=== PATIENT | female | born 1990 | race Caucasian/White ===

== ENCOUNTER 2022-08-06 10:17 | Emergency (ER) | payer OTHER ==
[2022-08-06 10:23] VITALS: BP 121/60
--- NOTE | 2022-08-06 10:50 | ED Physician Documentation ---
PD HPI UPPER EXT INJURY - Stated complaint Stated Complaint: R PINKY FINGER INJ - Chief complaint Chief Complaint: Trauma Ext - History obtained from History obtained from: Patient - History of Present Illness Location: Right, Finger (5th) Type of injury: Other (unknown) Timing - onset: Yesterday Timing - duration: Days (2) Timing - details: Abrupt onset, Still present Improved by: Rest, Immobilization Worsened by: Moving, Palpating Associated symptoms: Swelling, Discolored. 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 Review of Systems Constitutional: denies: Fever Respiratory: denies: Cough GI: denies: Vomiting, Diarrhea PD PAST MEDICAL HISTORY - Allergies Allergies/Adverse Reactions: Allergies Allergy/AdvReac Type Severity Reaction Status Date / Time No Known Drug Allergies Allergy Verified 08/06/22 10:23 PD ED PE NORMAL - Vitals Vital signs reviewed: Yes (Normal) - General General: Alert and oriented X 3, No acute distress, Well developed/nourished - HEENT HEENT: Atraumatic, PERRL, EOMI - Respiratory Respiratory: No respiratory distress - Derm Derm: Normal color, Warm and dry, No rash - Extremities Extremities: No deformity, Other (Minimal swelling and point tenderness to the PIP joint of the fifth digit on the right hand. Range of motion is limited by pain and swelling. 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, No motor deficit, No sensory deficit, Normal speech Eye Opening: Spontaneous Motor: Obeys Commands Verbal: Oriented GCS Score: 15 - Psych Psych: Normal mood, Normal affect Results - Vitals Vitals: Vital Signs - 24 hr 08/06/22 10:21 Temperature 36.9 C Heart Rate 73 Respiratory 16 Rate Blood Pressure 121/60 O2 Saturation 100 Oxygen O2 Source Room air - Rads (name of study) fingers Radiology: Prelim report reviewed (Impression: No acute or significant abnormality of the fifth finger.), EMP read indepedently, See rad report PD Medical Decision Making - ED course Complexity details: considered differential, d/w patient ED course: 32-year-old female with pain to the right PIP joint of the fifth finger without specific injury noted has no evidence of fracture on plain film. She has her fingers rocio taped and we are expecting recovery. Departure - Departure Disposition: 01 Home, Self Care Clinical Impression: Sprain of proximal interphalangeal (PIP) joint of finger Condition: Stable Instructions: ED Sprain Finger Follow-Up: Your, doctor [Other] Comments: Kayla, today it does not look like there is any evidence of a fracture on plain film the recommendation is to rocio tape her fingers and expect resolution of her symptoms within the week.
--- NOTE | 2022-08-06 11:06 | XRAY Report ---
PROCEDURE: Finger(s) RT INDICATIONS: 5th PIP swelling pain TECHNIQUE: AP hand, 2 views of the fifth finger(s) acquired. COMPARISON: None FINDINGS: Bones: No fractures or dislocations. No suspicious bony lesions. Soft tissues: No suspicious soft tissue calcifications. No radiopaque foreign bodies. IMPRESSION: No acute or significant abnormality of the fifth finger. Reviewed by: Shar Gamez on 08/06/2022 11:04 AM [facility] [[email or web address]] Approved by: Shar Gamez on 08/06/2022 11:04 AM [facility] [[email or web address]] Station ID: [id number]
== END 2022-08-06 11:24 | disposition home or self-care (01) ==
LOC: ED 10:17
DX: S63.637A Sprain of interphalangeal joint of left little finger, initial encounter (principal); X58.XXXA Exposure to other specified factors, initial encounter; Y93.9 Activity, unspecified
CPT/HCPCS: 99283

== ENCOUNTER 2022-08-07 06:58 | Outpatient (CLI) | payer OTHER ==
--- NOTE | 2022-08-07 08:12 | MRI Report ---
PROCEDURE: CERVICAL SPINE WO INDICATIONS: LOWER NECK PAIN TECHNIQUE: Noncontrast sagittal T1 spin echo and T2 fast spin echo, sagittal STIR, foraminal oblique sagittal T2 fast spin echo, and axial gradient echo or T2 fast spin echo through the cervical spine. COMPARISON: None. FINDINGS: Image quality: Excellent. Alignment and Curvature: There is normal bony alignment. Bone Marrow: Marrow demonstrates normal overall signal. Spinal Cord: Visualized spinal cord has normal size and signal. No cerebellar tonsillar herniation. Paraspinous Soft Tissues: No paravertebral masses. Prevertebral soft tissues are normal in thicknes s. C2-C3: Normal in appearance. C3-C4: Minimal disc bulge. No canal stenosis or foraminal stenosis. C4-C5: Normal in appearance. C5-C6: Normal in appearance. C6-C7: Normal in appearance. C7-T1: Normal in appearance. IMPRESSION: Minimal disc bulge at C3-C4. Otherwise unremarkable cervical spine MRI. No canal stenosis or foramina l stenosis or significant spondylitic change. Reviewed by: García Mason MD on 08/07/2022 8:11 AM PST Approved by: García Mason MD on 08/07/2022 8:11 AM PST Station ID: [id number]
== END 2022-08-07 06:59 | disposition home or self-care (01) ==
LOC: DI 06:58
PROVIDERS: ATTEND Nurse Practitioner Family
DX: M54.2 Cervicalgia (principal); R20.2 Paresthesia of skin

== ENCOUNTER 2023-04-26 08:30 | Outpatient (CLI) | payer OTHER ==
--- NOTE | 2023-04-26 13:10 | XRAY Report ---
PROCEDURE: Elbow 2 View RT INDICATIONS: NUMBNESS AND TINGLING RIGHT ARM TECHNIQUE: 2 views of the elbow were acquired. COMPARISON: None. FINDINGS: Bones: No fractures or dislocations. No suspicious bony lesions. Soft tissues: No effusion. No suspicious soft tissue calcifications or masses. IMPRESSION: No acute bony abnormality. Reviewed by: Reggie Almazan on 04/26/2023 1:09 PM [facility] Approved by: Reggie Almazan on 04/26/2023 1:09 PM [facility] Station ID: [id number]
--- NOTE | 2023-04-26 13:18 | XRAY Report ---
PROCEDURE: Wrist 3 View RT INDICATIONS: NUMBNESS AND TINGLING,RIGHT ARM TECHNIQUE: 3 views of the wrist were acquired. COMPARISON: None. FINDINGS: Bones: No fractures or dislocations. No suspicious bony lesions. Soft tissues: No suspicious soft tissue calcifications or masses. IMPRESSION: No acute bony abnormality. Reviewed by: Reggie Almazan on 04/26/2023 1:17 PM [facility] Approved by: Reggie Almazan on 04/26/2023 1:17 PM [facility] Station ID: [id number]
--- NOTE | 2023-04-26 13:34 | XRAY Report ---
PROCEDURE: Shoulder 3 View RT INDICATIONS: NUMBNESS AND TINGLING, RIGHT ARM TECHNIQUE: 3 views of the shoulder were acquired. COMPARISON: None. FINDINGS: Bones: No fractures or dislocations. No suspicious bony lesions. Visualized ribs appear intact. Soft tissues: No suspicious soft tissue calcifications. The visualized lungs are within normal limi ts. IMPRESSION: No acute bony abnormality. No significant degenerative change. Reviewed by: Reggie Almazan on 04/26/2023 1:33 PM PST Approved by: Reggie Almazan on 04/26/2023 1:33 PM [facility] Station ID: [id number]
--- NOTE | 2023-04-26 13:36 | XRAY Report ---
PROCEDURE: Cervical Spine 2 View INDICATIONS: NUMBNESS AND TINGLING,RIGHT ARM TECHNIQUE: 3 view(s) of the cervical spine were acquired. COMPARISON: None. FINDINGS: Bones: No fractures or dislocations to the C7 level. The lateral masses of C1 appear intact on the odontoid view. No suspicious bony lesions. Soft tissues: No prevertebral soft tissue swelling. IMPRESSION: No acute bony abnormality or significant degenerative change. Reviewed by: Reggie Almazan on 04/26/2023 1:35 PM [facility] Approved by: Reggie Almazan on 04/26/2023 1:35 PM [facility] Station ID: [id number]
== END 2023-04-26 08:31 | disposition home or self-care (01) ==
LOC: DI 08:30
PROVIDERS: ATTEND Physician Assistant Medical
DX: R20.2 Paresthesia of skin (principal)

== ENCOUNTER 2023-05-18 20:27 | Emergency (ER) | payer OTHER ==
[2023-05-18] MEDS ORDERED: ONDANSETRON ODT 4 MG TABLET TL STA (21:33)
[2023-05-18] MEDS ORDERED: HYDROmorphone 1 MG/ML CARPUJECT IM STA ×2 (21:33→22:29)
--- NOTE | 2023-05-18 21:34 | ED Physician Documentation ---
PD HPI LOWER EXT INJURY - Stated complaint Stated Complaint: BACK PAIN - Chief complaint Chief Complaint: Ext Problem - History obtained from History obtained from: Patient - History of Present Illness PD HPI LOW EXT INJURY LOCATION: Right - Additional information Additional information: She has had hip and back pain for the last 2 weeks. In fact she had to start driving with her left foot because the hip was hurting and she was feeling like she was losing function in the leg. Tonight she was getting up from a seated position off the floor and suddenly felt a pop in the hip and has much more severe pain in the hip and the pelvic girdle. She took baclofen and Motrin at home without much relief. She is nauseous as well. No possibility of , she has had a hysterectomy. PD PAST MEDICAL HISTORY - Past Medical History Past Medical History: No - Past Surgical History Past Surgical History: No - Present Medications Home Medications: Ambulatory Orders Medication Instructions Recorded Confirmed Cyclobenzaprine [Flexeril] 10 mg PO TID PRN 6 Days #20 tablet 05/19/23 Ibuprofen [Motrin] 600 mg PO Q6H PRN #30 tab 05/19/23 Lidocaine [Lidoderm] 1 each TP DAILY #10 patch 05/19/23 Oxycodone HCl/Acetaminophen 1 - 2 each PO Q6H PRN #14 tablet 05/19/23 [Percocet 5-325 mg Tablet] predniSONE [Deltasone] 20 mg PO [id number] #21 tab 05/19/23 - Allergies Allergies/Adverse Reactions: Allergies Allergy/AdvReac Type Severity Reaction Status Date / Time No Known Drug Allergies Allergy Verified 05/18/23 20:56 - Social History Does the pt smoke?: No Smoking Status: Never smoker Does the pt drink ETOH?: No Does the pt have substance abuse?: No - Immunizations Immunizations are current?: Yes - POLST Patient has POLST: No PD ED PE NORMAL - Vitals Vital signs reviewed: Yes - General General: Alert and oriented X 3, Other (She appears uncomfortable) - Abdomen Abdomen: Soft, Non tender - Back Back: No CVA TTP, Other (Tender in the low lumbar spine and right sciatic notch, not the left sciatic notch) - Derm Derm: Normal color, Warm and dry - Extremities Extremities: Other (Tender over the lateral hip and a lot of pain with internal/external rotation of the right hip. She has diminished sensation over the right medial calf compared to the left but lower extremity reflexes and strength are maintained limited by pain.) - Neuro Neuro: Alert and oriented X 3, Normal speech Results - Vitals Vitals: Vital Signs - 24 hr 05/18/23 05/18/23 05/19/23 20:53 23:48 00:58 Temperature 36.6 C 37 C Heart Rate 97 79 89 Respiratory 18 20 18 Rate Blood Pressure 144/77 H 128/74 106/69 O2 Saturation 98 100 98 Oxygen O2 Source Room air - Rads (name of study) XR L Spine and R Hip- Neg Relevant Findings:: Final report received, EMP independent interpretation of test PD Medical Decision Making - ED course ED course: Some numbness and weakness of the right leg for a couple of weeks and then a much more severe pain with a pop in the right hip while getting up off the floor tonight. Differential would include lumbar disc herniation with radiculopathy versus torn labrum. Less likely would be sun'aq hip dislocation. Pain contro lled initially with 1 mg of Dilaudid IM and this was repeated with a second dose at 2 mg with Toradol pending x-rays of the lumbar spine and hip. Departure - Departure Disposition: 01 Home, Self Care Clinical Impression: Lumbar radiculopathy, acute Condition: Good Record reviewed to determine appropriate education?: Yes Instructions: ED Sciatica Prescriptions: predniSONE [Deltasone] 20 mg PO [id number] #21 tab Cyclobenzaprine [Flexeril] 10 mg PO TID PRN 6 Days #20 tablet PRN Reason: Spasms Lidocaine [Lidoderm] 1 each TP DAILY #10 patch Ibuprofen [Motrin] 600 mg PO Q6H PRN #30 tab PRN Reason: Pain Oxycodone HCl/Acetaminophen [Percocet 5-325 mg Tablet] 1 - 2 each PO Q6H PRN #14 tablet PRN Reason: pain Comments: DISCUSSED, MORE CONSISTENT (TO ME) WITH LUMBAR RADICULOPATHY THAN HIP PATHOLOGY, BUT BOTH STILL POSSIBLE. XRAYS (HIP AND L-SPINE) NORMAL/NEG REASONABLE TO FOLLOWUPW ITH YOUR PCP ASP FOR EVAL FOR BOTH, +/- MRI OF EITHER/BOTH I SENT PRESRIPTIONS TO [facility] IN [place] Forms: PCP List Discharge Date/Time: 05/19/23 01:19
[2023-05-18] MEDS ORDERED: KETOROLAC 60 MG/2 ML VIAL IM STA (22:29)
--- NOTE | 2023-05-18 23:45 | XRAY Report ---
PROCEDURE: Lumbar Spine 2 View INDICATIONS: back pain TECHNIQUE: 2 views of the lumbar spine were acquired. COMPARISON: None. FINDINGS: Bones: 5 [id number] vertebrae are present. There is normal bony alignment. No vertebral body compression fractures. No suspicious bony lesions. Soft tissues: Overlying bowel gas pattern is normal. No suspicious soft tissue calcifications. IMPRESSION: No acute osseous abnormality. Reviewed by: Narciso Anderson MD on 05/18/2023 11:44 PM PST Approved by: Narciso Anderson MD on 05/18/2023 11:44 PM PST Station ID: [id number]
--- NOTE | 2023-05-18 23:45 | XRAY Report ---
PROCEDURE: Hip w/Pelvis 2-3V RT INDICATIONS: hip pain TECHNIQUE: AP pelvis with lateral view(s) of the right hip(s). COMPARISON: None. FINDINGS: Bones: No fractures or dislocations. No suspicious bony lesions. Soft tissues: No suspicious soft tissue calcifications or masses. IMPRESSION: No acute bony abnormality. Reviewed by: Narciso Anderson MD on 05/18/2023 11:43 PM PST Approved by: Narciso Anderson MD on 05/18/2023 11:43 PM PST Station ID: [id number]
[2023-05-19] MEDS ORDERED: CYCLOBENZAPRINE 10 MG Prepack 2 PO PRN (00:37)
[2023-05-19] MEDS ORDERED: oxyCODONE/ACET 5/325 Prepack 4 PO STA (00:37)
[2023-05-19] MEDS ORDERED: predniSONE 20 MG TABLET PO STA (00:41)
[2023-05-19 01:07] VITALS: BP 106/69; O2SAT 98
[2023-05-19] MEDS ORDERED: ONDANSETRON ODT 4 MG TABLET TL STA (01:07)
== END 2023-05-19 01:19 | disposition home or self-care (01) ==
LOC: ED 20:27
DX: M54.16 Radiculopathy, lumbar region (principal)
CPT/HCPCS: 96372; 99283; 99284

== ENCOUNTER 2023-05-19 10:08 | Emergency (ER) | payer OTHER ==
[2023-05-19 10:24] VITALS: O2SAT 100
--- NOTE | 2023-05-19 12:15 | ED Physician Documentation ---
History of Present Illness - Stated complaint Stated Complaint: RT HIP PX - Chief complaint Chief Complaint: Trauma Ext - History obtained from History obtained from: Patient - Additonal information Additional information: The patient comes to the emergency department chief complaint of right hip pain that got much worse after getting up off the floor and feeling a pop yesterday. The patient states for the last couple of weeks she has been having some pain in her left hip but has mostly been able to go about her normal activities. 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 She states she did not have any specific injury prior to the getting up incident yesterday. She states that after she felt a pop yesterday while getting up, she had excruciating, knifelike pain in her right hip and has been unable to bear weight since. The patient states she has had some numbness going down her leg and does not have a history of sciatica previously. She states the pain is really in her lateral right hip and not so much in her buttock. She has a history of some back issues and was having a little bit of back pain when she presented to the emergency department last night, but states the medication is that she has been taking since have more or less taken away the back pain and the pain is that she is having is really focused to the left hip. The patient was prescribed Percocet and Flexeril last night, but she states that those medications made her vomit, so she really has just taken ibuprofen and Zofran since. She is here because she has been trying to get an appointment with her primary to discuss having MRI done, but has been told that she cannot be seen in the clinic for 4 weeks. The insurance company told her to come back here for reevaluation and there was also a conversation last night with her emergency physician that she might be able to be "fit in" if the MRI scheduled allowed, with the understanding that this is not an emergent MRI and will not be done if another patient has to be bumped off the schedule in order to get her MRI. The patient denies any other complaints or new complaints at this time. She did not feel like she had any other injuries. PD PAST MEDICAL HISTORY - Past Medical History Past Medical History: No - Past Surgical History Past Surgical History: No - Present Medications Home Medications: Ambulatory Orders Medication Instructions Recorded Confirmed Cyclobenzaprine [Flexeril] 10 mg PO TID PRN 6 Days #20 tablet 05/19/23 05/19/23 Ibuprofen [Motrin] 600 mg PO Q6H PRN #30 tab 05/19/23 05/19/23 Lidocaine [Lidoderm] 1 each TP DAILY #10 patch 05/19/23 05/19/23 Oxycodone HCl/Acetaminophen 1 - 2 each PO Q6H PRN #14 tablet 05/19/23 05/19/23 [Percocet 5-325 mg Tablet] predniSONE [Deltasone] 20 mg PO [id number] #21 tab 05/19/23 05/19/23 - Allergies Allergies/Adverse Reactions: Allergies Allergy/AdvReac Type Severity Reaction Status Date / Time No Known Drug Allergies Allergy Verified 05/19/23 10:21 - Social History Does the pt smoke?: No Smoking Status: Never smoker Does the pt drink ETOH?: No Does the pt have substance abuse?: No - Immunizations Immunizations are current?: Yes - POLST Patient has POLST: No PD ED PE NORMAL - Vitals Vital signs reviewed: Yes - General General: Alert and oriented X 3, No acute distress, Well developed/nourished - HEENT HEENT: Atraumatic, PERRL, EOMI, Moist mucous membranes - Neck Neck: Supple, no meningeal sign - Respiratory Respiratory: No respiratory distress - Abdomen Abdomen: Soft, Non tender, Non distended - Derm Derm: Normal color, Warm and dry - Extremities Extremities: No deformity (No shortening or rotation.), Other (Tenderness to palpation over lateral right hip as well as extending to the lateral inguinal ligament and down the proximal thigh anteriorly. No deformity. Significant limitation to Passive and active ROM, secondary to pain.) - Neuro Neuro: Alert and oriented X 3, No motor deficit, No sensory deficit - Psych Psych: Normal mood, Normal affect Results - Vitals Vitals: Oxygen O2 Source Room air - Rads (name of study) MR Raji hip Relevant Findings:: Final report received, See rad report (Tears of gluteus minimus and medius tendons. Tendinosis hamstrings tendon.) PD Medical Decision Making - ED course Complexity details: reviewed old records, reviewed results, re-evaluated patient, considered differential, d/w patient, d/w family ED course: I discussed with the patient that as she already knows, her situation does not qualify for emergent MRI. The patient is completely understanding of this. However, I am willing to talk to the correctional maintenance technician and see what his schedule is today and see if we can possibly fit the patient in since her symptoms have been quite debilitating. The patient has declined any symptomatic management at this time as she just took ibuprofen and Zofran at home. I spoke with the correctional maintenance technician and it turns out he actually is open all morning, so the patient has been able to get the MRI of her right hip. MR showed partial tears of gluteus minimus and medius tendons. I have discussed this with the pt and her . I have given the pt orthopedic follow-up and activity limitation instructions. Departure - Departure Disposition: 01 Home, Self Care Clinical Impression: Tear of right gluteus minimus tendon Qualifiers: Encounter type: subsequent encounter Qualified Code(s): S76.011D - Strain of muscle, fascia and tendon of right hip, subsequent encounter Tear of right gluteus medius tendon Qualifiers: Encounter type: subsequent encounter Qualified Code(s): S76.011D - Strain of muscle, fascia and tendon of right hip, subsequent encounter Condition: Stable Instructions: Stretch Hamstring W Towel, Stretch Seated Hamstring Follow-Up: Herrera Pal MD [Provider Admit Priv/Credential] - Comments: Your MRI shows tears of the distal tendons of both the right gluteus medius and the right gluteus minimus. Both tears are partial-thickness and extend to the musculotendinous junction. You do also have some chronic tendinopathy of the right hamstring tendons, most likely from overuse. No other abnormalities were noted. At this point in time, you will most likely need to do range of motion exercises and stretches and give the tears time to heal. Often, these tears take a number of weeks to completely heal, although you may be able to get back to work part way through the healing process. The contact information for the orthopedic clinic has been provided that you can follow-up and get a sense of what your limitations will be and for approximately how long. For now, you may continue to take the medications that you have, as needed and as they are helpful. Be sure you are doing some passive range of motion every day with help from somebody else. Stretching, as much as you are able to do, and massage can also be helpful. You may use ice and heat as well. Forms: PCP List, Activity restrictions Discharge Date/Time: 05/19/23 13:05
--- NOTE | 2023-05-19 12:16 | MRI Report ---
PROCEDURE: HIP WO - RT INDICATIONS: severe R hip pain after injury TECHNIQUE: Noncontrast coronal T1 spin echo and STIR through the bony pelvis. Coronal and axial T2 fast spin ec ho with fat saturation, sagittal T1 spin echo, and oblique axial T2 fast spin echo with fat saturatio n through the hip. COMPARISON: Right hip radiographs from 05/18/2023. FINDINGS: Image quality: Excellent. Bones and joints: Bone marrow of the pelvic ring and proximal femurs show normal signal throughout. No intraosseous lesions or fractures. No avascular necrosis of the femoral heads. The visualized l ower lumbar spine appears normally aligned. Tendons: Low to moderate grade partial-thickness tear involving distal right gluteus medius tendon at its insertion on greater trochanter is seen extending to musculotendinous junction. Low-grade partia l-thickness tear involving distal right gluteus minimus tendon is also seen at its insertion on great er trochanter. The iliopsoas tendon appears intact, without adjacent bursal fluid collections. The o rigin of the hamstring tendon is mildly thickened is suggestive of low-grade tendinosis. Labrum and cartilage: There is slight fraying of superior anterior right hip labrum at 12 to 1:00 pos ition concerning for subtle superior anterior labral tear. Cartilage surface of the femoral head appe ars of normal thickness. The alpha angle of the femur is within normal limits at less than 55 degree s. Soft tissues: Visualized muscles demonstrate normal bulk and internal signal. The proximal sciatic neurovascular bundle appears normal adjacent to the hamstring tendons. No free pelvic fluid. Bladde r wall thickness is normal. Genitourinary structures and bowel loops appear normal where visualized. IMPRESSION: 1. No marrow edema. No pelvic or hip fracture. No evidence of avascular necrosis. 2. Low to moderate grade partial-thickness tear involving distal right gluteus medius tendon extendin g to musculotendinous junction. Low-grade partial-thickness involving right distal gluteus minimus te ndon. Tendinosis involving origins of hamstring tendons at the ischial tuberosity. No other muscle or tendon signal abnormalities. 3. Finding finding may represent very subtle superior anterior right hip labral tear in the absence o f intra-articular contrast. Reviewed by: Donald Noel MD on 05/19/2023 12:15 PM PST Approved by: Donald Noel MD on 05/19/2023 12:15 PM [facility] Station ID: [id number]
[2023-05-19 12:48] VITALS: BP 113/65
== END 2023-05-19 13:05 | disposition home or self-care (01) ==
LOC: ED 10:08
DX: S76.011A Strain of muscle, fascia and tendon of right hip, initial encounter (principal); X58.XXXA Exposure to other specified factors, initial encounter
CPT/HCPCS: 72100; 73502; 73721; 96372; 99283; 99284; J1170; J7512; Q0162

== ENCOUNTER 2023-05-28 09:03 | Outpatient (CLI) | payer OTHER | END 2023-05-28 09:04 | disposition home or self-care (01) | LOC: LAB 09:03 | PROVIDERS: ATTEND Nurse Practitioner | DX: M79.661 Pain in right lower leg (principal) | CPT/HCPCS: 36415; 85379 ==

== ENCOUNTER 2023-05-28 12:48 | Outpatient (CLI) | payer OTHER ==
--- NOTE | 2023-05-28 15:50 | Ultrasound Report ---
PROCEDURE: Duplex Ext Veins Right INDICATIONS: HX OF DVT TECHNIQUE: Real-time imaging, as well as color and pulse Doppler interrogation, were performed of the lower extr emity deep veins from the inguinal ligament to the popliteal fossa. Attempted visualization of the ca lf veins was performed. COMPARISON: None. FINDINGS: The deep veins are normally compressible, and free of intraluminal thrombus. Color and pu lse Doppler demonstrate normal phasic intraluminal flow. There is normal augmentation response to di stal compression maneuver. IMPRESSION: No deep vein thrombosis of the right lower extremity. Reviewed by: Jackie Shane MD on 05/28/2023 3:49 PM PST Approved by: Jackie Shane MD on 05/28/2023 3:49 PM PST Station ID: [id number]
== END 2023-05-28 12:49 | disposition home or self-care (01) ==
LOC: DI 12:48
PROVIDERS: ATTEND Nurse Practitioner
DX: Z86.72 Personal history of thrombophlebitis (principal)

== ENCOUNTER 2023-06-16 13:36 | Outpatient (CLI) | payer OTHER ==
[2023-06-16 14:01] LABS: BILIRUBIN,URINE NEGATIVE (NEGATIVE); GLUCOSE, URINE (UA) NEGATIVE (NEGATIVE); KETONES,URINE (UA) NEGATIVE (NEGATIVE); LEUKOCYTE ESTERASE, URINE NEGATIVE (NEGATIVE); NITRITE,URINE POSITIVE (NEGATIVE); OCCULT BLOOD,URINE NEGATIVE (NEGATIVE); PH,URINE 6.5 PH (5.0-7.5); PROTEIN,URINE NEGATIVE (NEGATIVE); UROBILINOGEN,URINE 0.2 (NORMAL) E.U./dL (NORMAL)
[2023-06-16 14:12] LABS: CLARITY,URINE CLEAR (CLEAR)
[2023-06-16 14:13] LABS: BACTERIA,URINE Few /HPF (None Seen); RBC,URINE None Seen /HPF (0-5); SQUAMOUS EPITHELIAL CELL,UR MOD Squamous (<= Few); WBC,URINE 0-3 /HPF (0-5)
== END 2023-06-16 13:37 | disposition home or self-care (01) ==
LOC: LAB 13:36
PROVIDERS: ATTEND Nurse Practitioner
DX: N20.0 Calculus of kidney (principal)
CPT/HCPCS: 81001; 87086

== ENCOUNTER 2023-06-28 08:00 | Outpatient (CLI) | payer OTHER ==
--- NOTE | 2023-06-28 16:33 | XRAY Report ---
PROCEDURE: Pelvis 1 View INDICATIONS: RIGHT HIP PAIN TECHNIQUE: 1 view(s) of the pelvis acquired. COMPARISON: None. FINDINGS: Bones: No acute fractures or dislocations. Tiny corticated fragments adjacent to lateral aspect of b ilateral acetabulum are seen and may represent remote avulsion injury. No suspicious bony lesions. Soft tissues: Visualized bowel gas pattern is normal. No suspicious soft tissue calcifications. IMPRESSION: No acute bony abnormality. Possible remote avulsion injury involving bilateral acetabular roof. No evidence of avascular necrosi s of femoral head. Reviewed by: Donald Jamil MD on 06/28/2023 4:32 PM PST Approved by: Donald Jamil MD on 06/28/2023 4:32 PM PST Station ID: [id number]
== END 2023-06-28 23:59 | disposition home or self-care (01) ==
LOC: DI.WOS 08:00
PROVIDERS: ATTEND Physician Assistant Surgical
DX: M25.551 Pain in right hip (principal)

== ENCOUNTER 2023-07-05 10:03 | Outpatient (CLI) | payer OTHER ==
[2023-07-05 10:25] LABS: BILIRUBIN,URINE NEGATIVE (NEGATIVE); GLUCOSE, URINE (UA) NEGATIVE (NEGATIVE); KETONES,URINE (UA) NEGATIVE (NEGATIVE); LEUKOCYTE ESTERASE, URINE SMALL (NEGATIVE); NITRITE,URINE NEGATIVE (NEGATIVE); OCCULT BLOOD,URINE MODERATE (NEGATIVE); PROTEIN,URINE NEGATIVE (NEGATIVE); UROBILINOGEN,URINE 0.2 (NORMAL) E.U./dL (NORMAL)
[2023-07-05 10:34] LABS: CLARITY,URINE HAZY (CLEAR); SQUAMOUS EPITHELIAL CELL,UR MOD Squamous (<= Few)
[2023-07-05 10:35] LABS: BACTERIA,URINE Rare /HPF (None Seen)
== END 2023-07-05 10:04 | disposition home or self-care (01) ==
LOC: LAB 10:03
PROVIDERS: ATTEND Nurse Practitioner
DX: Z87.440 Personal history of urinary (tract) infections (principal)
CPT/HCPCS: 81001; 87086

== ENCOUNTER 2023-07-06 12:12 | Outpatient (CLI) | payer OTHER ==
[2023-07-06 12:26] LABS: BASOPHILS # (AUTO) 0.1 10^3/uL (0.0-0.1); BASOPHILS % (AUTO) 1.3 %; EOSINOPHILS # (AUTO) 0.1 10^3/uL (0.0-0.7); EOSINOPHILS % (AUTO) 2.2 %; HCT - HEMATOCRIT 42.2 % (37.0-47.0); HGB - HEMOGLOBIN 13.8 g/dL (12.0-16.0); LYMPHOCYTES # (AUTO) 1.6 10^3/uL (1.5-3.5); LYMPHOCYTES % (AUTO) 28.4 %; MEAN CORPUSCULAR HEMOGLOBIN 29.7 pg (27.0-31.0); MEAN CORPUSCULAR HGB CONC 32.7 g/dL (32.0-36.0); MEAN CORPUSCULAR VOLUME 90.9 fL (81.0-99.0); MEAN PLATELET VOLUME 10.2 fL (7.9-10.8); MONOCYTES # (AUTO) 0.4 10^3/uL (0.0-1.0); MONOCYTES % (AUTO) 7.6 %; NEUTROPHILS # (AUTO) 3.4 10^3/uL (1.5-6.6); NEUTROPHILS % (AUTO) 60.3 %; PLT - PLATELET COUNT 245 10^3/uL (130-450); RED BLOOD COUNT 4.64 10^6/uL (4.20-5.40); WHITE BLOOD COUNT 5.6 x10^3/uL (4.8-10.8)
== END 2023-07-06 12:13 | disposition home or self-care (01) ==
LOC: LAB 12:12
PROVIDERS: ATTEND Nurse Practitioner
DX: N20.0 Calculus of kidney (principal); Z87.440 Personal history of urinary (tract) infections
CPT/HCPCS: 36415; 85025

== ENCOUNTER 2023-08-30 09:14 | Outpatient (CLI) | payer OTHER ==
[2023-08-30 09:28] LABS: BASOPHILS # (AUTO) 0.1 10^3/uL (0.0-0.1); BASOPHILS % (AUTO) 1.4 %; EOSINOPHILS # (AUTO) 0.1 10^3/uL (0.0-0.7); HCT - HEMATOCRIT 42.7 % (37.0-47.0); HGB - HEMOGLOBIN 13.7 g/dL (12.0-16.0); LYMPHOCYTES # (AUTO) 1.5 10^3/uL (1.5-3.5); LYMPHOCYTES % (AUTO) 25.2 %; MEAN CORPUSCULAR HEMOGLOBIN 29.4 pg (27.0-31.0); MEAN CORPUSCULAR HGB CONC 32.1 g/dL (32.0-36.0); MEAN CORPUSCULAR VOLUME 91.6 fL (81.0-99.0); MEAN PLATELET VOLUME 9.8 fL (7.9-10.8); MONOCYTES # (AUTO) 0.3 10^3/uL (0.0-1.0); MONOCYTES % (AUTO) 4.9 %; NEUTROPHILS # (AUTO) 3.9 10^3/uL (1.5-6.6); NEUTROPHILS % (AUTO) 66.2 %; PLT - PLATELET COUNT 292 10^3/uL (130-450); RED BLOOD COUNT 4.66 10^6/uL (4.20-5.40); WHITE BLOOD COUNT 5.9 x10^3/uL (4.8-10.8)
[2023-08-30 09:43] LABS: ALBUMIN 4.6 g/dL (3.2-5.5); ALBUMIN/GLOBULIN RATIO 1.5 (1.0-2.2); BILIRUBIN,TOTAL 1.3 mg/dL (0.2-1.0); CALCIUM 9.9 mg/dL (8.5-10.3); CREATININE 0.8 mg/dL (0.6-1.3); POTASSIUM 4.1 mmol/L (3.5-4.5); TOTAL PROTEIN 7.7 g/dL (6.4-8.9)
== END 2023-08-30 09:15 | disposition home or self-care (01) ==
LOC: LAB 09:14
PROVIDERS: ATTEND Physician Assistant
DX: K59.00 Constipation, unspecified (principal); R14.0 Abdominal distension (gaseous); R19.7 Diarrhea, unspecified; R63.0 Anorexia; R14.3 Flatulence; R68.81 Early satiety; R11.0 Nausea
CPT/HCPCS: 36415; 80053; 81599; 83690; 85025

== ENCOUNTER 2023-12-03 08:16 | Outpatient (CLI) | payer OTHER ==
[2023-12-03 08:50] LABS: ALBUMIN 4.7 g/dL (3.2-5.5); ALBUMIN/GLOBULIN RATIO 1.7 (1.0-2.2); ALKALINE PHOSPHATASE 69 IU/L (42-121); ALT ALANINE AMINOTRANSFERASE 18 IU/L (10-60); AST ASPARTATE AMINOTRANSFERASE 18 IU/L (10-42); BILIRUBIN,TOTAL 1.2 mg/dL (0.2-1.0); BUN - BLOOD UREA NITROGEN 16 mg/dL (6-20); CALCIUM 9.7 mg/dL (8.5-10.3); CARBON DIOXIDE - CO2 27 mmol/L (21-32); CHLORIDE 103 mmol/L (101-111); CHOL/HDL RATIO 2.4 (<4.4); CHOLESTEROL 164 mg/dL; CREATININE 0.9 mg/dL (0.6-1.3); GFR - MDRD 73 (>89); GLUCOSE 83 mg/dL (74-104); HDL CHOLESTEROL 69 mg/dL; LDL CHOLESTEROL,CALCULATED 85 mg/dL; LDL/HDL RATIO 1.2 (<4.4); SODIUM 135 mmol/L (135-145); TOTAL PROTEIN 7.5 g/dL (6.4-8.9); TRIGLYCERIDES 52 mg/dL (48-352); VLDL CHOLESTEROL 10 mg/dL
== END 2023-12-03 08:17 | disposition home or self-care (01) ==
LOC: LAB 08:16
PROVIDERS: ATTEND Internal Medicine
DX: L70.8 Other acne (principal)
CPT/HCPCS: 36415; 80053; 80061; 83721

== ENCOUNTER 2024-02-01 16:01 | Outpatient (CLI) | payer OTHER ==
--- NOTE | 2024-02-02 12:14 | MRI Report ---
Shoulder LT WO CLINICAL HISTORY: 33 years of age, Female, LEFT SHOULDER PAIN. Comparison: No priors available Technique: Multiplanar, multisequence MRI of the left shoulder was performed without intravenous con trast. IV Contrast: Not Administered. Findings: Osseous acromial outlet: The acromioclavicular joint is unremarkable. Type II acromion. No os acromia le. No subacromial/subdeltoid bursitis. Rotator cuff muscles and tendons: The supraspinatus, infraspinatus, subscapularis, and teres minor ar e intact without evidence of tendinosis or tear. Muscles are intact without evidence of atrophy or edema. Labral and capsular structures: Tear of the anterior superior labrum, extending anteriorly to the ant erior inferior labrum. There is a cluster of paralabral cyst about the anterior inferior labrum, skyla uring 2.0 cm overall. Biceps tendon and anchor: The extra-articular biceps tendon is unremarkable. Mild tendinosis of the i ntra-articular biceps tendon. Osseous and cartilaginous structures: Bone marrow signal is within normal limits. No fracture or disl ocation. No focal chondral defects. Miscellaneous: No significant glenohumeral effusion. No intra-articular bodies. The remaining muscl es are normal in bulk without evidence of atrophy or edema. Multiple left axillary lymph nodes, more than expected in number, incompletely evaluated. IMPRESSION: 1.Labral tear with 2.0 cm paralabral cyst about the anterior inferior labrum. 2.Multiple left axillary lymph nodes, more than expected in number, incompletely evaluated. Reviewed by: Mayelin Ku MD on 02/02/2024 12:13 PM PDT Approved by: Mayelin Ku MD on 02/02/2024 12:13 PM PDT Station ID: [id number]
== END 2024-02-01 16:02 | disposition home or self-care (01) ==
LOC: DI 16:01
PROVIDERS: ATTEND Nurse Practitioner Family
DX: S43.492A Other sprain of left shoulder joint, initial encounter (principal)

== ENCOUNTER 2024-02-10 08:47 | Outpatient (CLI) | payer OTHER ==
--- NOTE | 2024-02-10 17:21 | Ultrasound Report ---
PROCEDURE: Abdomen Complete INDICATIONS: BLOATING, DIARRHEA TECHNIQUE: Real-time scanning was performed of the abdominal and retroperitoneal organs, with image documentatio n. COMPARISON: None. FINDINGS: Liver: Liver is normal in size and homogeneous in echotexture. Main portal vein is patent with hepa topedal flow. Gallbladder: No gallstones, sludge, wall thickening or pericholecystic edema. Biliary ducts: Intrahepatic bile ducts are non-dilated. Extrahepatic bile duct caliber measures 3.9 mm. Normal is 6-7 mm or less in diameter, or 10 mm or less post-cholecystectomy. Pancreas: Visualized portions of the pancreas are sonographically normal. Spleen: Spleen is normal in size and homogeneous in echotexture. Kidneys: Kidneys are normal in size width bilateral echogenic.. Right kidney measures 12.9 cm long; left kidney measures 11.6 cm long. No hydronephrosis or nephrolithiasis. No solid masses. No compl ex renal cystic lesions which require follow-up. Aorta: Visualized aorta is normal in caliber at less than 3 cm. Iliacs: Proximal common iliac arteries are normal in caliber at less than 2.5 cm. IVC: Intrahepatic inferior vena cava is patent. Miscellaneous: No free abdominal fluid. IMPRESSION: 1.Bilateral kidneys are normal in size with no hydronephrosis. 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 2.Otherwise, normal abdominal ultrasound. If clinical symptoms persist, consider cross-sectional imaging for further evaluation. Reviewed by: Cheri White MD on 02/10/2024 5:20 PM PDT Approved by: Cheri White MD on 02/10/2024 5:20 PM PDT Station ID: [id number]
== END 2024-02-10 08:48 | disposition home or self-care (01) ==
LOC: DI 08:47
PROVIDERS: ATTEND Physician Assistant
DX: R14.0 Abdominal distension (gaseous) (principal); R19.7 Diarrhea, unspecified; K59.00 Constipation, unspecified; R63.0 Anorexia; R14.3 Flatulence; R68.81 Early satiety; R11.0 Nausea

== ENCOUNTER 2024-03-17 16:24 | Outpatient (CLI) | payer OTHER ==
[2024-03-17 16:49] LABS: BILIRUBIN,URINE NEGATIVE (NEGATIVE); GLUCOSE, URINE (UA) 100 mg/dL (NEGATIVE); KETONES,URINE (UA) TRACE mg/dL (NEGATIVE); LEUKOCYTE ESTERASE, URINE LARGE (NEGATIVE); NITRITE,URINE POSITIVE (NEGATIVE); OCCULT BLOOD,URINE NEGATIVE (NEGATIVE); PROTEIN,URINE 30 mg/dL (NEGATIVE)
[2024-03-17 16:56] LABS: CLARITY,URINE HAZY (CLEAR)
[2024-03-17 17:03] LABS: BACTERIA,URINE Moderate /HPF (None Seen); RBC,URINE 0-5 /HPF (0-5); SQUAMOUS EPITHELIAL CELL,UR FEW Squamous (<= Few); WBC,URINE >25 /HPF (0-5)
== END 2024-03-17 16:25 | disposition home or self-care (01) ==
LOC: LAB 16:24
PROVIDERS: ATTEND Nurse Practitioner
DX: N20.0 Calculus of kidney (principal); M54.50 Low back pain, unspecified; N30.90 Cystitis, unspecified without hematuria
CPT/HCPCS: 81001; 87086